=== PATIENT | female | born 1985 | race Two or more races ===

== ENCOUNTER → 2019-10-04 10:04 | Outpatient (CLI) | payer BC, SELFPAY ==
--- NOTE | 2019-10-04 10:15 | XR_ITS ---
PROCEDURE: XR KNEE LT 4V CLINICAL INDICATION: knee pain COMPARISON: No exams were available for comparison FINDINGS: No fracture or dislocation. No lytic or blastic change. There is normal mineralization. The joint spaces are well-preserved. No significant degenerative/arthritic changes. No erosive changes evident. Other findings:None. IMPRESSION: No acute findings. Dictated by: Jose Raul Baca MD 10/04/2019 11:53 Electronically signed by Jose Raul Baca MD in [place] 10/04/2019 11:53
== END ==
PROVIDERS: PCP Nurse Practitioner; Visit Provider Orthopaedic Surgery
DX: M25.562 Pain in left knee (principal)
CPT/HCPCS: 73564

== ENCOUNTER → 2020-04-18 10:40 | Outpatient (CLI) | payer BC, SELFPAY ==
--- NOTE | 2020-04-18 10:43 | MM_ITS ---
PROCEDURE: MM DIG SCREENING MAMM BI W/CAD Digital Breast Tomosynthesis Included CLINICAL INDICATION: SCREENING There is a history of breast cancer patient's paternal grandmother and paternal aunt. COMPARISON: No exam this is a baseline exam. S were available for comparison TECHNIQUE: Standard CC and MLO images and 3D Tomosynthesis was obtained. R2 CAD reviewed. FINDINGS: There is a diffusely dense and heterogenic parenchymal pattern bilaterally. Aayush images are most helpful in this type of dense parenchyma. The findings are fairly symmetrical bilaterally. There is no suspicious lesion and no suspicious microcalcifications. IMPRESSION: Diffusely dense parenchymal pattern with no suspicious lesions seen BI-RAD Category: 1 Negative FOLLOW-UP: 1YR 1 Year Follow-up after the age of 42 (A letter has been sent to the patient regarding results of the study.) Dictated by: Dr. Zeke Velez MD 04/18/2020 13:58 Dr. Zeke Velez MD in [place] 04/18/2020 13:58
== END ==
PROVIDERS: PCP Nurse Practitioner; Visit Provider Nurse Practitioner
DX: Z12.31 Encounter for screening mammogram for malignant neoplasm of breast (principal); Z80.3 Family history of malignant neoplasm of breast
CPT/HCPCS: 77063; 77067

== ENCOUNTER 2021-10-18 12:37 | Emergency (ER) | payer OTHER, SELFPAY ==
[2021-10-18 12:38] VITALS: BP 109/64; PULSE 91; RESP 14; TEMP 36.7; O2SAT 98; BMI 22.8
--- NOTE | 2021-10-18 13:04 | CT_ITS ---
FINAL REPORT CLINICAL HISTORY: bilateral flank pain FINDINGS: Technique: Axial images through the abdomen and pelvis were performed by computed tomography. This study was performed with techniques to keep radiation doses as low as reasonably achievable (ALARA). Individualized dose reduction techniques using automated exposure control or adjustment of mA and/or kV according to the patient's size were employed. Abdomen: The lung bases are clear. The liver is normal in size and attenuation. The spleen is unremarkable. The pancreas is normal. The adrenals are normal. The aorta is normal in caliber. There is no hydronephrosis. There is no nephrolithiasis. Pelvis: The appendix is unremarkable. The urinary bladder is unremarkable. There is no free fluid or adenopathy. IMPRESSION: No hydronephrosis or nephrolithiasis. Reviewed, Interpreted and Dictated by Sunil Vazquez III, MD Transcribed by Sara Garcia Authenticated by Sunil Vazquez III, MD on 10/18/2021 02:11:56 PM [facility]
[2021-10-18 13:12] LABS: Microscopic, Urine URINE MICROSCOPIC (MICROSCOPIC)
[2021-10-18 13:14] LABS: Appearance,Urine CLEAR (Clear); Bilirubin,Urine Negative (Negative); Blood, Urine TRACE-I (Negative); Color,Urine STRAW (Yellow); Glucose,Urine (UA) Negative (Negative); Ketones,Urine Negative (Negative); Leukocyte Esterase,Urine Negative (Negative); Nitrate,Urine Negative (Negative); Protein,Urine Negative (Negative); Specific Gravity, Urine 1.015 (1.005-1.030); Urobilinogen,Urine 0.2 EU/dl (0.2)
[2021-10-18 13:15] LABS: Basophils % 0.5 % (0.1-2.0); Eosinophils % 0.5 % (0.1-12.0); Hematocrit 41.8 % (37.0-47.0); Hemoglobin 14.2 g/dL (12.2-16.2); Lymphocytes # 1.3 K/mm3 (0.7-4.5); Lymphocytes % 22.9 % (10-50); Mean Corpuscular HGB Conc 33.9 g/dL (31.8-35.4); Mean Corpuscular Hemoglobin 29.8 pg (27.0-31.2); Mean Platelet Volume 8.8 fl (7.4-10.4); Monocytes # 0.4 K/mm3 (0.1-1.0); Monocytes % 6.4 % (1.7-9.3); Neutrophils % 69.7 % (37.0-80.0); Platelet Count 276 K/mm3 (142-424); Red Blood Count 4.76 M/mm3 (4.20-5.40); Red Cell Distribution Width 12.7 % (11.5-17.5); White Blood Count 5.8 K/mm3 (4.8-10.8)
[2021-10-18 13:16] LABS: Chloride 105 mmol/L (98-107); Potassium 3.8 mmoL/L (3.5-5.1); Sodium 137 mmol/L (136-145)
[2021-10-18 13:19] LABS: Alanine Aminotransferase 13 U/L (12-78); Albumin Level 4.6 g/dl (3.5-5.0); Albumin/Globulin Ratio 1.8 (1.1-1.8); Alkaline Phosphatase 63 U/L (38-126); Anion Gap 11.8 mEq/L (5-15); Aspartate Amino Transferase 25 U/L (14-36); Bilirubin,Total 0.3 mg/dl (0.2-1.3); Blood Urea Nitrogen 10 mg/dl (7-17); Carbon Dioxide 24 mmol/L (22.0-30.0); Creatinine Clearance Estimated 118 mL/min (50-200); Estimated Glomerular Filt Rate 114 ml/min (>60); GFR (African American) 138 ML/MIN (>60); Globulin 2.5 g/dL (1.3-3.2); Total Protein,Serum 7.1 g/dl (6.3-8.2)
[2021-10-18 13:20] LABS: Calcium 8.2 mg/dl (8.4-10.2); Glucose 93 mg/dl (74-100)
--- NOTE | 2021-10-18 13:36 | HMH.EDGENADL ---
ED Disposition Clinical Impression: Right flank pain Disposition: Home, Self-Care Condition on Discharge: Good Additional Instructions: Ibuprofen for pain. Follow-up with your primary care provider for further evaluation, gallbladder ultrasound, urine culture results. Referrals: Sanam Chu APRN [Primary Care Provider] - - Critical Care Critical Care Time: No Attestation: On 10/18/21, the high probability of a clinically significant, sudden or life threatening deterioration of the following system(s) required my full and direct attention, intervention and personal management. The time I documented below is in addition to time spent performing reported procedures but includes the following listed in this critical care notation. Medical Decision Making - Bakari Inquiry Pt receiving controlled substance: No Vital Signs: 10/18/21 12:38 Temperature 98.1 F Temperature Source Oral Pulse Rate [Right Radial] 91 H Respiratory Rate 14 Blood Pressure [Right Arm] 109/64 L Blood Pressure Mean [Right Arm] 79 Blood Pressure Source [Right Arm] Automatic Cuff Blood Pressure Position [Right Arm] Sitting 02 Sat by Pulse Oximetry 98 Oxygen Delivery Method Room Air - Lab Data Lab Results 10/18/21 12:59: WBC 5.8, RBC 4.76, Hgb 14.2, Hct 41.8, MCV 88.0, MCH 29.8, MCHC 33.9, RDW 12.7, Plt Count 276, MPV 8.8, Neut % (Auto) 69.7, Lymph % (Auto) 22.9, [place] % (Auto) 6.4, Eos % (Auto) 0.5, Baso % (Auto) 0.5, Neut # (Auto) 4.0, Lymph # (Auto) 1.3, [place] # (Auto) 0.4, Eos # (Auto) 0.0, Baso # (Auto) 0.0 10/18/21 12:59: Sodium 137, Potassium 3.8, Chloride 105, Carbon Dioxide 24, Anion Gap 11.8, BUN 10, Creatinine 0.60, Estimated Creat Clear 118, Estimated GFR 114, Est GFR ( Amer) 138, Glucose 93, Calcium 8.2 L, Total Bilirubin 0.3, AST 25, ALT 13, Alkaline Phosphatase 63, Total Protein 7.1, Albumin 4.6, Globulin 2.5, Albumin/Globulin Ratio 1.8 10/18/21 12:59: Lipase 111 10/18/21 13:08: Urine Color Straw, Urine Appearance Clear, Urine pH 8.0, Ur Specific [place] 1.015, Urine Protein Negative, Urine Glucose (UA) Negative, Urine Ketones Negative, Urine Blood Trace-i, Urine Nitrate Negative, Urine Bilirubin Negative, Urine Urobilinogen 0.2, Ur Leukocyte Esterase Negative, Urine RBC Occasional, Urine WBC Occasional, Ur Squamous Epith Cells 3-5, Urine Bacteria Trace Result diagrams: 10/18/21 12:59 10/18/21 12:59 Orders (Tests/Meds): ED MEDICATIONS Generic Name Dose Route Start Last Admin Trade Name Freq PRN Reason Stop Dose Admin Sodium Chloride 10 ml 10/18/21 13:04 Sodium Chloride 0.9% 10ml Flush Syringe IV 11/17/21 13:03 NEEDED PRN Maintain IV Site - CT Data CT Scan: Abdomen, Pelvis Time Received: 14:[address] Reviewed: Yes: I have viewed the radiologist's interpretation Findings Narrative: Procedure(s): CT abdomen pelvis wo con Accession Number(s): [id number] cc: Sunil Vazquez MD; Gabino Mclean MD; Sanam Chu APRN~ FINAL REPORT CLINICAL HISTORY: bilateral flank pain FINDINGS: Technique: Axial images through the abdomen and pelvis were performed by computed tomography. This study was performed with techniques to keep radiation doses as low as reasonably achievable (ALARA). Individualized dose reduction techniques using automated exposure control or adjustment of mA and/or kV according to the patient's size were employed. Abdomen: The lung bases are clear. The liver is normal in size and attenuation. The spleen is unremarkable. The pancreas is normal. The adrenals are normal. The aorta is normal in caliber. There is no hydronephrosis. There is no nephrolithiasis. Pelvis: The appendix is unremarkable. The urinary bladder is unremarkable. There is no free fluid or adenopathy. IMPRESSION: No hydronephrosis or nephrolithiasis. Reviewed, Interpreted and Dictated by Sunil Vazquez III, MD Transcribed by Sara Garcia Authenticated by Sunil Vazquez III, MD on
[2021-10-18 13:41] LABS: RBC,Urine Occasional #/hpf (0-3); WBC,Urine Occasional #/hpf (0-3)
[2021-10-18 13:42] LABS: Bacteria,Urine Trace /lpf
[2021-10-18 13:57] LABS: Lipase 111 U/L (23-300)
[2021-10-18 14:56] VITALS: BP 112/70; PULSE 89; RESP 16; TEMP 36.7; O2SAT 99
== END 2021-10-18 15:00 | disposition home or self-care (01) ==
PROVIDERS: Emergency Provider Emergency Medicine; PCP Nurse Practitioner
DX: R10.31 Right lower quadrant pain (principal); Z88.0 Allergy status to penicillin
CPT/HCPCS: 74176; 80053; 81001; 83690; 85025; 99283; 99284

== ENCOUNTER → 2021-10-22 08:04 | Outpatient (CLI) | payer OTHER, SELFPAY ==
--- NOTE | 2021-10-22 08:26 | US_ITS ---
FINAL REPORT CLINICAL HISTORY: RUQ PAIN FINDINGS: ULTRASOUND RIGHT UPPER QUADRANT Sonographic imaging of the right upper quadrant was obtained. The pancreas is partially obscured. There is a 1.8 x 1.3 cm hyperechoic focus in the right lobe of the liver that is probably due to a hemangioma. There is a trace amount of sludge in the gallbladder with no evidence of gallstones. The gallbladder is appears septated. There is no gallbladder wall thickening. There is no biliary ductal dilatation. The common duct is normal at 2 mm. Limited images of the right kidney are unremarkable. IMPRESSION: Hyperechoic focus in the liver probably due to hemangioma. Septated appearing gallbladder with minimal sludge and without evidence of gallstones. Reviewed, Interpreted and Dictated by Karel Kilgore MD Transcribed by Kathy Haskins Authenticated by Karel Kilgore MD on 10/22/2021 01:15:26 PM [facility]
== END ==
PROVIDERS: PCP Nurse Practitioner; Visit Provider Nurse Practitioner
DX: R10.11 Right upper quadrant pain (principal)
CPT/HCPCS: 76705

== ENCOUNTER → 2022-03-22 09:47 | Outpatient (CLI) | payer OTHER, SELFPAY ==
--- NOTE | 2022-03-22 09:52 | XR_ITS ---
FINAL REPORT CLINICAL HISTORY: Right cervical radiculopathy FINDINGS: CERVICAL SPINE Three views were obtained. There is no acute fracture. There is no malalignment. There is straightening of the normal cervical curvature which could be due to positioning or muscle spasm. The disc spaces are preserved. There is no soft tissue abnormality. IMPRESSION: No acute bony abnormality. Straightening of the normal cervical curvature which could be due to positioning or muscle spasm. Reviewed, Interpreted and Dictated by Sunil Vazquez III, MD Transcribed by Kathy Haskins Authenticated and [facility]
== END ==
PROVIDERS: PCP Nurse Practitioner; Visit Provider Nurse Practitioner
DX: M54.12 Radiculopathy, cervical region (principal)
CPT/HCPCS: 72040

== ENCOUNTER → 2022-04-23 14:35 | Outpatient (CLI) | payer OTHER, SELFPAY ==
[2022-04-23 17:56] LABS: MANUAL DIFFERENTIAL MANUAL DIFFERENTIAL (MANUAL DIFF)
[2022-04-23 19:03] LABS: Basophils % 0.5 % (0.1-2.0); Eosinophils # 0.1 K/mm3 (0.0-0.4); Hematocrit 42.1 % (37.0-47.0); Hemoglobin 13.1 g/dL (12.2-16.2); Lymphocytes # 1.1 K/mm3 (0.7-4.5); Mean Corpuscular HGB Conc 31.2 g/dL (31.8-35.4); Mean Corpuscular Hemoglobin 28.8 pg (27.0-31.2); Mean Corpuscular Volume 92.5 fl (81-99); Mean Platelet Volume 9.4 fl (7.4-10.4); Monocytes # 0.4 K/mm3 (0.1-1.0); Monocytes % 8.9 % (1.7-9.3); Neutrophils # 2.9 K/mm3 (1.8-7.8); Neutrophils % 65.6 % (37.0-80.0); Platelet Count 241 K/mm3 (142-424); Red Blood Count 4.55 M/mm3 (4.20-5.40); Red Cell Distribution Width 13.3 % (11.5-17.5); White Blood Count 4.4 K/mm3 (4.8-10.8)
[2022-04-23 20:53] LABS: Anisocytosis 1+; Hypochromasia 2+; Lymphocytes % 23 % (10-50); Monocytes % 1 % (2-9); Neutrophils % 76 % (42-76); Platelet Estimate Normal; Total Cells Counted 100
== END ==
PROVIDERS: PCP Family Medicine; Visit Provider Family Medicine
DX: K62.5 Hemorrhage of anus and rectum (principal)
CPT/HCPCS: 85007; 85014; 85018; 85048; 85049

== ENCOUNTER 2022-04-24 08:54 | Emergency (ER) | payer OTHER, SELFPAY ==
[2022-04-24 09:00] VITALS: BP 118/71; PULSE 82; RESP 17; TEMP 36.7; O2SAT 98; BMI 22.8
[2022-04-24 09:30] VITALS: BP 119/85; PULSE 89; RESP 16; O2SAT 97
[2022-04-24 10:00] VITALS: BP 129/84; PULSE 84; RESP 16; O2SAT 97
[2022-04-24 10:30] VITALS: BP 124/70; PULSE 74; RESP 15; O2SAT 97
--- NOTE | 2022-04-24 10:37 | HMH.EDGENADL ---
Discharge Plan Disposition Patient Disposition: Home, Self-Care Condition: Good Chief Complaint: PAIN Prescriptions Prescriptions: No Action tizanidine 4 mg capsule 4 mg PO Q8H PRN (Reason: muscle spasticity) Qty: 60 0RF gabapentin 300 mg capsule 300 mg PO BID Qty: 60 0RF Referrals Referrals: Maris Shen MD [Primary Care Provider] - Enter time for follow up Activity Restrictions/Add. Instructions Additional Instructions/Restrictions: Call Dr. Shen's office tomorrow to obtain MRI results and referrals as needed. Clinical Impressions Clinical Impression: Cervical radiculopathy Instructions Patient Instructions: DI for Cervical Radiculopathy Discharge ED Provider: Gabino Mclean General Adult HPI General Chief complaint: PAIN Stated complaint: neck, shoulder blades and arm pain Time Seen by Provider: 04/24/22 10:30 Mode of Arrival: Ambulatory Source of Information: Patient Limitations: No Limitations Description of Symptoms (Recalled from ER Triage Doc. by RN): pt to ed c/o right shoulder pain x6 weeks that radiates down her right arm. pt states she had an MRI this morning and reports the pain has become severe and she cannot tolerate it anymore. History of Present Illness HPI narrative: The patient has had symptoms of a cervical radiculopathy for 6 weeks. She has pain in her neck and right shoulder that radiates down her right arm. She gets tingling in her fingers and her tip of her index finger stays numb constantly. She has been seeing Dr. Shen. She was treated with a steroid pack a couple of weeks ago without improvement. She has been on meloxicam and tramadol. She says tramadol made her constipated and meloxicam caused intestinal bleeding. She had an MRI of her cervical spine this morning, she says Dr. Shen suspects a herniated disc. She says that he has told her that she would be referred for a cortisone injection if that were the case. She says that she was given the impression that her MRI reading would be available now, MRI was done at 7:30 AM. She would like her epidural steroid injection to be done, if possible. Related Data Previous Rx's Medication Instructions Recorded gabapentin 300 mg capsule 300 mg PO BID #60 caps 04/24/22 tizanidine 4 mg capsule 4 mg PO Q8H PRN muscle spasticity 04/24/22 #60 caps Allergies Allergy/AdvReac Type Severity Reaction Status Date / Time Penicillins Allergy Mild Verified 04/23/22 11:11 [facility] PFS Social History Smoking Status: Never smoker second hand exposure: No alcohol intake: never substance use type: denies use current occupational status: other housing: house current occupation: [employer] current occupational exposures/hazards: No caffeine: No ROS Obtained: Yes Systems reviewed as appropriate & no additional complaints except as documented ENT Ears, Nose, Mouth, and Throat: Reports neck pain Musculoskeletal Musculoskeletal: Reports neck pain Neurologic Neurologic: Reports as per HPI Physical Exam General General appearance: alert and in no apparent distress Head Head exam: atraumatic and normocephalic Eye Eye exam: Present normal appearance Neck Neck exam: Present normal inspection Chest Chest inspection: Present normal inspection and symmetric chest wall rise Respiratory Respiratory exam: Present normal lung sounds bilaterally; Absent respiratory distress Cardiovascular Cardiovascular exam: Present regular rate, normal rhythm and normal heart sounds Extremities Exam Extremities exam: Present normal inspection and other (Normal peripheral pulses) Neurological Exam Neurological exam: Present alert, oriented X3, CN II-XII intact and motor sensory deficit (Reports numbness to tip of right index finger only) Psychiatric Psychiatric exam: Present normal affect and anxious Skin Skin exam: Present warm and dry Medical Decision Making Bakari Inquiry Pt receiving controlled substance: No
--- NOTE | 2022-04-24 10:45 | PC.NURSE ---
FREDDIE REDDY at
[2022-04-24 11:13] VITALS: BP 121/77; PULSE 80; RESP 17; TEMP 36.7; O2SAT 97
== END 2022-04-24 11:13 | disposition home or self-care (01) ==
PROVIDERS: Emergency Provider Emergency Medicine; PCP Family Medicine
DX: M54.12 Radiculopathy, cervical region (principal); Z88.0 Allergy status to penicillin
CPT/HCPCS: 99283

== ENCOUNTER → 2022-04-24 09:16 | Outpatient (CLI) | payer OTHER, SELFPAY ==
--- NOTE | 2022-04-24 09:22 | MR_ITS ---
FINAL REPORT CLINICAL HISTORY: right cervical radiculopathy, neck pain right arm tingling/numbness x7 weeks, no injury FINDINGS: Multi planar MR imaging was obtained of the cervical spine. There is abnormal decreased signal throughout the cervical discs. The vertebrae are of normal height. There is mild reversal of normal cervical lordosis. There is no malalignment. The cervical cord demonstrates normal signal and configuration. C2-C3: There is no evidence of significant disc bulge or protrusion. There is no significant facet hypertrophy. C3-C4: There is no evidence of significant disc bulge or protrusion. There is no significant facet hypertrophy. C4-C5: There is no evidence of significant disc bulge or protrusion. There is no significant facet hypertrophy. C5-C6: There is mild endplate hypertrophy particularly eccentric to the left. There is a mild to moderate left neural foraminal narrowing. C6-C7: There is a mild diffuse disc bulge. C7-T1: There is no evidence of significant disc bulge or protrusion. There is no significant facet hypertrophy. IMPRESSION: Mild endplate hypertrophy, particularly eccentric to the left, with mild to moderate left neural foraminal narrowing at C5-6. Mild diffuse disc bulge at C6-7. Reviewed, Interpreted and Dictated by Karel Kilgore MD Transcribed by Kathy Haskins Authenticated and . [facility]
== END ==
PROVIDERS: PCP Family Medicine; Visit Provider Family Medicine
DX: M54.12 Radiculopathy, cervical region (principal); M54.2 Cervicalgia; M62.838 Other muscle spasm
CPT/HCPCS: 72141; 76376

== ENCOUNTER → 2022-04-29 08:12 | Outpatient (POV) | payer OTHER, SELFPAY ==
[2022-04-29 08:20] VITALS: BP 96/67; PULSE 106; RESP 18; TEMP 36.9; O2SAT 97; BMI 22.6
--- NOTE | 2022-04-29 09:11 | EXP.PAIN.OV ---
HPI Data of Consult Patient: new to practice Consult date: 04/29/22 Requesting Physician: Kiara Cerrato APRN Primary Care Provider: Jose Alejandro Barber MD Consult Narrative Reason for consult: Right neck/shoulder pain, numbness/tingling right upper extremity History of present illness: Ms. Duenas is a 36 year old female who presents today as a new patient. She is a referral from Jose Alejandro Barber. Patient states she started having issues in September with her right shoulder blade and it has progressed to include her right arm. Patient states her right index finger is completely numb. Patient denies any new trauma or injury to the site. She stated it was just a achy sensation that was worse with increased activity however about 7 weeks ago it did get significantly worse. She states she has more tingling in her bilateral upper extremities with certain movements and activities. Patient states this is a constant pain that worsens as the day goes on. Patient states this is affecting her everyday life including her sleeping. She has been prescribed tramadol 50 mg 3 times a day by Dr. Shen however she said she was unable to tolerate the medication due to a reaction. Patient reports she was then given gabapentin and tizanidine. Her gabapentin was 100 mg 3 times a day. Patient denies any side effects from these medications. She states these did provide moderate improvement of her pain initially. She stated she has now been increased in her gabapentin dosage to 600 mg 3 times a day. Patient has tried ahkr-[id number] Tylenol with minimal improvement of symptoms. She is also used heat and ice with no relief. Patient was seen physical therapy and massage therapy however she is since stopped due to limited range of motion and pain symptoms. Patient does use a [id number] cooling gel topical with some relief. Patient is interested in any therapies we can provide to give her pain relief. Her Bakari is [phone]. Its been reviewed and appropriate. CC: Kiara Cerrato APRN [facility] Medical History (Updated 04/29/22 @ 09:25 by Kiara Cerrato APRN) Bulging disc History of back pain Spinal stenosis Social History (Updated 04/29/22 @ 08:53 by Radha Aldridge RN) Smoking Status: Never smoker second hand exposure: No alcohol intake: never substance use type: denies use current occupational status: employed Travel in the last 8 weeks: None household members: spouse housing: house marital status: current occupation: [employer] current occupational exposures/hazards: No caffeine: No Review of Systems Review of Systems Review of systems:: pertinent systems reviewed and negative unless documented below Review of systems (narrative): Review of Systems: General: No recent weight changes, no fever, no sleep disturbances Respiratory: No cough, no shortness of air, no recurring pulmonary infections Cardiovascular/peripheral vascular: No chest pain, no palpitations, no edema, no shortness of breath Gastrointestinal: No new onset incontinence, normal bowel movements reported Genitourinary: No new onset incontinence Musculoskeletal: Right neck pain, right shoulder pain, right arm numbness/tingling Psychiatric: [Normal mood/affect] Neurological: [Denies weakness in extremities], [denies balance issues] Meds Home Medications and Allergies Home Medications Medication Instructions Recorded Confirmed Type gabapentin 300 mg capsule 600 mg PO TID Pain 04/29/22 04/29/22 History tizanidine 4 mg capsule 4 mg PO TID PRN muscle spasticity 04/29/22 04/29/22 History New Prescriptions to Start Prescriptions: Allergies Allergy/AdvReac Type Severity Reaction Status Date / Time Penicillins Allergy Mild Verified 04/23/22 11:11 Objective Vital signs: Temp Pulse Resp BP Pulse Ox 98.4 F 106 H 18 96/67 L 97 04/29/22 08:20 04/29/22 08:20 04/29/22 08:20 04/29/22 08:20 04/29/22 08:20 Tre
== END ==
PROVIDERS: PCP Family Medicine; Visit Provider Nurse Practitioner Family
DX: M79.18 Myalgia, other site (principal); M25.511 Pain in right shoulder; R20.0 Anesthesia of skin; R20.2 Paresthesia of skin
CPT/HCPCS: 99202; G0463

== ENCOUNTER 2022-04-30 12:52 | Day surgery (SDC) | payer OTHER, SELFPAY ==
[2022-04-30 13:04] VITALS: BP 126/84; PULSE 76; RESP 20; TEMP 36.8; O2SAT 100; BMI 21.9
--- NOTE | 2022-04-30 13:29 | P.PCN_ITS ---
Procedure Date: 04/30/22 Time: 13:29 Anesthesiologist:: Uday Murphy CRNA Complications:: None Pre-procedure Diagnosis:: Degenerative disc disease cervical spine multilevels. Cervical radiculopathy. Post-procedure Diagnosis:: Same Indications for Procedure:: This patient is a pleasant 36-year-old female who comes to our injection clinic today for cervical epidural steroid injection the C6-7 level. Patient reports cervical neck pain. Bilateral arm radiculopathy. I reviewed her cervical MRI which reveals: FINDINGS: Multi planar MR imaging was obtained of the cervical spine. There is abnormal decreased signal throughout the cervical discs. The vertebrae are of normal height.? There is mild reversal of normal cervical lordosis.? There is no malalignment. The cervical cord demonstrates normal signal and configuration. C2-C3: There is no evidence of significant disc bulge or protrusion.? There is no significant facet hypertrophy.? C3-C4: There is no evidence of significant disc bulge or protrusion. There is no significant facet hypertrophy.? C4-C5: There is no evidence of significant disc bulge or protrusion.? There is no significant facet hypertrophy.? C5-C6:? There is mild endplate hypertrophy particularly eccentric to the left.? There is a mild to moderate left neural foraminal narrowing.? C6-C7:? There is a mild diffuse disc bulge.? C7-T1: There is no evidence of significant disc bulge or protrusion.? There is no significant facet hypertrophy. I discussed in detail with the patient regarding the procedure. Risk versus benefits. Answered her questions. She wishes to proceed. Procedure Details:: Procedure:Cervical epidural steroid injection Informed consent was obtained and the risks and benefits of the procedure were explained to the patient. The patient was taken to the procedure room and toya nvasive monitors placed, including noninvasive blood pressure cuff and pulse oximeter. The neck was prepped using Betadine as a cleansing solution. The C6-C7 interspace was palpated. The skin and subcutaneous tissues were anesthetized using lidocaine 1.5% and a 25-gauge needle. After this an 18-gauge Touhy epidural needle was placed into the C6-C7 interspace and advanced using loss of resistance to air until the epidural space was encountered. After confirmation of needle placement in the epidural space, a solution containing lidocaine 1.5%, 4 mL and Depo-Medrol 80 mg was incrementally injected into the cervical epidural space.~ The patient tolerated the procedure well with no complications. The patient was observed in the Pain Clinic and then discharged home neurologically intact. Plan and Disposition:: Patient was discharged without incident
[2022-04-30 13:31] VITALS: BP 127/87; PULSE 77; RESP 18
[2022-04-30 13:32] VITALS: BP 127/87; PULSE 78; RESP 18; O2SAT 99
[2022-04-30 13:58] VITALS: BP 121/56; PULSE 74; O2SAT 99
== END 2022-04-30 13:43 | disposition home or self-care (01) ==
PROVIDERS: PCP Family Medicine; Visit Provider Nurse Anesthetist, Certified Registered
DX: M50.123 Cervical disc disorder at C6-C7 level with radiculopathy (principal)
CPT/HCPCS: 62321; J1040

== ENCOUNTER → 2022-05-16 13:01 | Outpatient (POV) | payer OTHER, SELFPAY ==
[2022-05-16 13:17] VITALS: BP 109/46; PULSE 86; RESP 18; TEMP 36.9; O2SAT 99; BMI 22.8
--- NOTE | 2022-05-16 13:28 | EXP.PAIN.SOA ---
[facility] Pain Management SOAP Note Subjective:: Patient is a pleasant 36-year-old who presents today for follow-up of a cervical epidural steroid injection at C6-7 on 04/30/2022. We are currently treating the patient for degenerative disc disease of her cervical spine multilevels with cervical radiculopathy symptoms, right shoulder pain. Patient states she has had 60 to 70% improvement following this injection and feels like she is still currently getting a little relief. Today the patient rates her pain a 7 out of 10. Patient states her pain is primarily in her neck and right shoulder that radiates down into her right arm with numbness and tingling in her fingers. Patient denies any new trauma or injury to the site. Patient denies any change to the location or type of pain she experiences. Patient is currently managed with gabapentin 300 mg twice daily [address] Dr[address] Jose Alejandro Barber. Patient has also been prescribed tizanidine in the past however patient states this medication did not occur out and dropped her blood pressure so she is stopped taking it. Patient has tried tramadol in the past however did not notice significant improvement of her symptoms. Patient has been seen physical therapy however at her last visit they did not recommend any additional exercises except for neck traction. Patient states she is scheduled to see them next week. Her Bakari is [phone]. Its been reviewed and appropriate. Review of Systems: General: No recent weight changes, no fever, no sleep disturbances Respiratory: No cough, no shortness of air, no recurring pulmonary infections Cardiovascular/peripheral vascular: No chest pain, no palpitations, no edema, no shortness of breath Gastrointestinal: No new onset incontinence, normal bowel movements reported Genitourinary: No new onset incontinence Musculoskeletal: Neck pain, right shoulder pain, right arm pain Psychiatric: [Normal mood/affect] Neurological: [Denies weakness in extremities], [denies balance issues] Objective:: Physical Exam: General: Alert and oriented x3, no acute distress, pleasant and cooperative Lungs: Respirations even and unlabored, symmetrical chest expansion Eyes: PERRL Musculoskeletal: Flexion and extension of cervical [spine] somewhat guarded secondary to pain, [antalgic gait noted] Neurological: Speech clear, no gross sensory deficit Assessment:: Degenerative disc disease of cervical spine multilevels with cervical radiculopathy symptoms, right shoulder pain Plan:: Patient has had some improvement following her last cervical epidural injection. Patient continues to have limited range of motion of her cervical spine with radicular symptoms in her right arm. I have discussed with the patient doing a repeat cervical epidural steroid injection. Risk and benefits were discussed with the patient. She would like to proceed forward with this plan of care. Patient is not currently on any blood thinners. I will also order the patient a compounding cream at today's visit. We will schedule her for a JOON C6-C7 at today's visit. Patient has been instructed to contact the clinic with any concerns before the next appointment. Dr. Burgos has reviewed this note and agrees with this plan of care. This note was dictated using voice recognition software and make contain errors or omissions. [facility] Medical History (Updated 04/30/22 @ 10:59 by Lizbet Nick MD) Bulging disc History of back pain Numbness and tingling of right arm Spinal stenosis Family History (Updated 04/30/22 @ 09:44 by Tita Cano) Other Cancer Hyperlipidemia Hypertension Social History (Updated 04/30/22 @ 09:45 by Tita Cano) Smoking Status: Never smoker second hand exposure: No alcohol intake: never substance use type: denies use current occupational status: employed Travel in the last 8 weeks: None household members: spouse housing: house marital status: current occupation: pottery current o
== END ==
PROVIDERS: PCP Family Medicine; Visit Provider Nurse Practitioner Family
DX: M50.123 Cervical disc disorder at C6-C7 level with radiculopathy (principal); Z79.899 Other long term (current) drug therapy
CPT/HCPCS: 99212; G0463

== ENCOUNTER 2022-05-21 15:01 | Day surgery (SDC) | payer SELFPAY ==
[2022-05-21 15:05] VITALS: BP 99/63; PULSE 85; RESP 18; TEMP 36.9; O2SAT 98; BMI 19.8
[2022-05-21 15:14] VITALS: BP 128/61; PULSE 87; RESP 18; O2SAT 98
[2022-05-21 15:15] VITALS: BP 128/61; PULSE 87; RESP 18; O2SAT 98
--- NOTE | 2022-05-21 15:16 | EXP.PAIN.PRO ---
Procedure Date: 05/21/22 Time: 15:16 Anesthesiologist:: Uday Murphy CRNA Complications:: None Pre-procedure Diagnosis:: Degenerative disc disease cervical spine. Cervical radiculopathy. Post-procedure Diagnosis:: Same. Indications for Procedure:: Very pleasant 36-year-old female that comes to our injection clinic for a second cervical epidural steroid injection at the C6-7 level. Patient reports 50 to 70% improvement after her first injection in terms of her cervical neck pain as well as right arm radicular symptoms. She rates her pain today 6/10. Procedure Details:: Procedure:Cervical epidural steroid injection Informed consent was obtained and the risks and benefits of the procedure were explained to the patient. The patient was taken to the procedure room and noninvasive monitors placed, including noninvasive blood pressure cuff and pulse oximeter. The neck was prepped using Betadine as a cleansing solution. The C6-C7 interspace was palpated. The skin and subcutaneous tissues were anesthetized using lidocaine 1.5% and a 25-gauge needle. After this an 18-gauge Touhy epidural needle was placed into the C6-C7 interspace and advanced using loss of resistance to air until the epidural space was encountered. After confirmation of needle placement in the epidural space, a solution containing lidocaine 1.5%, 4 mL and Depo-Medrol 80 mg was incrementally injected into the cervical epidural space.~ The patient tolerated the procedure well with no complications. The patient was observed in the Pain Clinic and then discharged home neurologically intact. Plan and Disposition:: Patient was discharged without incident.
[2022-05-21 15:30] VITALS: BP 109/58; PULSE 72; RESP 20; O2SAT 98
== END 2022-05-21 15:30 | disposition home or self-care (01) ==
PROVIDERS: PCP Family Medicine; Visit Provider Nurse Anesthetist, Certified Registered
DX: M50.123 Cervical disc disorder at C6-C7 level with radiculopathy (principal)
CPT/HCPCS: 62320; J1040

== ENCOUNTER → 2022-05-29 14:46 | Outpatient (POV) | payer OTHER, SELFPAY ==
[2022-05-29 15:12] VITALS: BP 123/65; PULSE 95; RESP 18; TEMP 37; O2SAT 96; BMI 22.4
--- NOTE | 2022-05-29 16:24 | EXP.PAIN.SOA ---
[facility] Pain Management SOAP Note Subjective:: Patient is a pleasant 36-year-old female who presents today for follow-up of cervical epidural steroid injection C6-C7 on 05/21/2022. We are currently treating the patient for degenerative disc disease of cervical spine multilevels with cervical radiculopathy symptoms, right shoulder pain. Patient states she has had significant improvement following this injection in her shoulder but she does still continue to have pain and radicular symptoms in her right arm. Patient states at least 50% improvement however she does state that the numbness and tingling in her hand did get worse over the last few days however she did stop taking her gabapentin on a regular basis and is now only taking it every other day 1 pill. Her previous epidural did provide 60 to 70% improvement and provided a couple weeks worth of relief. She was prescribed gabapentin 300 mg 3 times a day by Dr. Barber's office however she feels that it causes a groggy fog like sensation that she does not like. Today she rates her pain a 5 out of 10. She states the pain is primarily in her right hand/wrist that since radiating symptoms into her forearm. She describes this as a sharp achy sensation along with numbness and tingling. Patient states she frequently notices this with certain range of movement of her wrist. Patient was previously prescribed tizanidine however she stated this dropped her blood pressure so she stopped taking it. Patient was also tried on tramadol but did not notice significant improvement of her symptoms. Patient has been seen by physical therapy however at her last visit they did not recommend any additional exercises except for neck traction. Her Bakari is [id number]. It is been reviewed and appropriate. Review of Systems: General: No recent weight changes, no fever, no sleep disturbances Respiratory: No cough, no shortness of air, no recurring pulmonary infections Cardiovascular/peripheral vascular: No chest pain, no palpitations, no edema, no shortness of breath Gastrointestinal: No new onset incontinence, normal bowel movements reported Genitourinary: No new onset incontinence Musculoskeletal: Right shoulder pain, right arm pain Psychiatric: [Normal mood/affect] Neurological: [Denies weakness in extremities], [denies balance issues] Objective:: Physical Exam: General: Alert and oriented x3, no acute distress, pleasant and cooperative Lungs: Respirations even and unlabored, symmetrical chest expansion Eyes: PERRL Musculoskeletal: Flexion and extension of cervical [spine] somewhat guarded secondary to pain, [antalgic gait noted] Neurological: Speech clear, no gross sensory deficit Assessment:: Degenerative disc disease of cervical spine multilevels with cervical radiculopathy symptoms, right shoulder pain Plan:: Patient continues to have significant pain in her right shoulder and right arm. She had limited range of motion of her cervical spine during today's exam. Patient was previously ordered a EMG test by her neurologist however they declined it at that time. Speaking with the patient and how she describes certain movements that elicit the numbness and tingling in her forearm appears consistent with possible carpal tunnel. I have discussed with the patient regarding being sent for a referral to an orthopedic surgeon for possible carpal tunnel syndrome. I will refer the patient to Dr. Jose Lemus orthopedic surgeon. I have also discussed with the patient that she may benefit from additional cervical epidural. Risk and benefits were discussed with the patient. She would like to proceed forward with this injection. She is not currently on any blood thinners. We will schedule the patient for a JOON C6-C7. Patient has been instructed to contact the clinic with any concerns before the next appointment. Dr. Burgos has reviewed this note and agrees with this plan of care. This note was dictated using voice recognition software and make
== END ==
PROVIDERS: Visit Provider Nurse Practitioner Family
DX: M50.123 Cervical disc disorder at C6-C7 level with radiculopathy (principal)
CPT/HCPCS: 99212; G0463

== ENCOUNTER 2022-06-20 10:00 | Outpatient (RCR) | payer OTHER, SELFPAY ==
--- NOTE | 2022-04-22 11:19 | HMH.RHREAS ---
Rehab Reassessment Rehab OP Re-assessment Start: 04/22/22 09:06 Freq: Status: Active Protocol: Document 04/22/22 09:07 DWAIN (Rec: 04/22/22 11:19 DWAIN [id number]) Electronically Signed By Stefano Waddell, PT 04/22/22 09:07 Rehab Re-assessment Subjective Subjective Pt reports 8-10 right sided neck and RUE radicular s/s from shoulder to hand. Pt reports s/s and pain have unfortunately worsened since I eval, however, hopes to find answers and relief with MRI and neurologist referral. Objective Objective Notes CROM: FLX 0-12, EXT 0-14, R SB 0-15, L SB 0-25, R ROT 0-17, L ROT 0-26 MMT: RIGHT SH FLX 3-/5, ABD 3- /5, R BICEP 4-/5, R TRICEP 4-/ 5, R WRIST EXT,FLX 3+--4/5 TTP: R UT MM 4/4, R CERVICAL PARA 4/4, R SCALENE 4/4 Assessment Progress Assessment No Progress Assessment Notes DECREASED CROM, STRENGTH, AND TTP Patient goals met STG'S 09/10 Goals Not Met STG'S 05/11, LTG'S 07/12 Plan Plan Pt to continue w/skilled P.T. to attempt improvements in CROM, strength, and TTP to allow for optimal function Frequency of Therapy 1-2x/wk Duration of therapy 4-6wks Time and Billing Re-Eval Time 12 Re-Eval Billing Units 1 PHYSICIAN CERTIFICATION: I certify the specified therapy services for Bernadette (ASHANTI-FAUSTINO) RadhaAnnarafaela are required, authorized, and reviewed every 30 days.
--- NOTE | 2022-05-30 11:42 | HMH.RHREAS ---
Rehab Reassessment Rehab OP Re-assessment Start: 04/22/22 09:06 Freq: Status: Active Protocol: Document 05/30/22 11:31 [email or web address] (Rec: 05/30/22 11:41 THORRADHA [id number]) E-signed By Stefano Waddell, PT Rehab Re-assessment Subjective Subjective Pt reports second pain management injection in cervical spine last Friday, and reports 'even better than after the first injection'. Pt reports 2-3/10 neck and right UE pain this am on VAS, and reports ability to execute some very minimal household acitivities over the last couple days. Objective Objective Notes CROM: FLX 0-45, EXT 0-50, R SB 0-40, L SB 0-45, R ROT 0-65, L ROT 0-70 MMT: RIGHT SH FLX 4/5, ABD 4/5 , R BICEP 4/5, R TRICEP 4-/5, R WRIST EXT,FLX 4/5 TTP: R UT MM 1-2/4, R CERVICAL PARA 1/4, R SCALENE 1/4 Assessment Progress Assessment Progressing as Expected Assessment Notes significant improvements in CROM, strength, and TTP Patient goals met STG'S 04/10, LTG'S 11/09 Goals Not Met STG'S 10/11, LTG'S 04/11 Plan Plan Pt to continue w/skilled P.T. to attempt improvements in CROM, strength, and TTP to allow for optimal function Frequency of Therapy 1-2x/wk Duration of therapy 3-4wks Time and Billing Re-Eval Time 12 Re-Eval Billing Units 1 PHYSICIAN CERTIFICATION: I certify the specified therapy services for Bernadette Duenas are required, authorized, and reviewed every 30 days.
== END 2022-06-20 10:05 | disposition home or self-care (01) ==
LOC: PT 10:00
PROVIDERS: PCP Nurse Practitioner; Visit Provider Nurse Practitioner
DX: M54.12 Radiculopathy, cervical region (principal)
CPT/HCPCS: 97010; 97012; 97014; 97035; 97110; 97140; 97163; 97164; 97535; G0283